=== PATIENT | female | born 1960 | race Caucasian/White ===

== ENCOUNTER 2022-12-29 18:23 | Observation (INO) | payer SELFPAY ==
[2022-12-29 18:44] LABS: #Basophils 0.1 thou/uL (0.0-0.2); #Eosinphils 0.1 thou/uL (0.0-0.7); #Monocytes 0.3 thou/uL (0.11-0.59); %Basophils 0.7 % (0.0-1.0); %Eosinophils 1.5 % (0.0-10.0); %Lymphocytes 47.7 % (21.0-51.0); %Monocytes 4.9 % (0.0-10.0); %Neutrophils 44.9 % (42.0-75.0); Hemoglobin 14.4 g/dL (12.0-16.0); Mean Corpuscular HGB CONC 35.4 g/dL (32.0-36.0); Mean Corpuscular Hemoglobin 33.5 pg (27.0-31.0); Mean Corpuscular Volume 94.7 fl (78.0-98.0); Mean Platelet Volume 9.7 fL (7.4-10.4); Platelet Count 211 10x3/uL (130-400); RBC Distribution Width 11.5 % (11.5-14.5); White Blood Cell (WBC) Count 6.8 10x3/uL (4.8-10.8)
[2022-12-29 19:20] LABS: ALT (SGPT) 33 U/L (8-55); AST (SGOT) 30 U/L (5-34); Albumin 4.6 g/dL (3.4-4.8); Alkaline Phosphatase 58 U/L (40-110); Anion Gap 18 mmol/L (10-20); BUN (Urea Nitrogen) 14 mg/dL (9.8-20.1); Bilirubin, Total 0.7 mg/dL (0.2-1.2); Calc. Creatinine Clearance 0 mL/min (70-130); Calcium 9.9 mg/dL (7.8-10.44); Carbon Dioxide 18 mmol/L (23-31); Chloride 109 mmol/L (98-107); Estimated GFR 60; Globulin 2.7 g/dL (2.4-3.5); Glucose 152 mg/dL (80-115); Lipase 53 U/L (8-78); Potassium 4.5 mmol/L (3.5-5.1); Protein, Total 7.3 g/dL (5.8-8.1); Sodium 140 mmol/L (136-145)
[2022-12-29] MEDS ORDERED: Aspirin Chewable 81 MG TAB ONE (20:40)
[2022-12-29 22:43] VITALS: BMI 34.9
[2022-12-30 00:32] LABS: Troponin I 0.017 ng/mL (< 0.028)
[2022-12-30 03:02] LABS: Troponin I 0.011 ng/mL (< 0.028)
[2022-12-30 06:16] LABS: Cardiac Risk 5.6 (Less than 4.5)
[2022-12-30] MEDS ORDERED: ADENOSINE 60 MG/20 ML SDV ONE (08:59)
[2022-12-30] MEDS ORDERED: Aspirin 325 mg Enteric Coated Tablet PO SCH (09:00)
[2022-12-30 12:04] VITALS: TEMP 97.9
[2022-12-30 15:41] VITALS: BP 143/71
[2022-12-30] MEDS ORDERED: Sertraline 100 MG TAB PO SCH (21:00)
== END 2022-12-30 17:24 | disposition home or self-care (01) ==
LOC: ERS 18:23 → 2SW 22:36
PROVIDERS: ADMIT Hospitalist; ATTEND Emergency Medicine
DX: R07.9 Chest pain, unspecified (principal); E78.5 Hyperlipidemia, unspecified; K21.9 Gastro-esophageal reflux disease without esophagitis; Z79.82 Long term (current) use of aspirin; Z79.899 Other long term (current) drug therapy
CPT/HCPCS: 36415; 71045; 78452; 80053; 80061; 83690; 84484; 85025; 93005; 93017; 94760; A9500; G0378; J0153